=== PATIENT | female | born 1965 | race Caucasian/White ===

== ENCOUNTER 2019-08-30 13:32 | Emergency (ER) | payer SELFPAY ==
--- NOTE | 2019-08-30 14:19 | EDM.PDOC ---
ED HPI GENERAL MEDICAL PROBLEM - General Chief Complaint: Gastrointestinal Problem Stated Complaint: HEMORRHOID Time Seen by Provider: 08/30/19 14:05 Source of Information: Reports: Patient History Limitations: Reports: No Limitations - History of Present Illness INITIAL COMMENTS - FREE TEXT/NARRATIVE: Tia reports sxs of rectal pressure and bulging with bowel efforts over the past 8 days. On , she was aware of some BRB from the rectum, and attempted to treat with Prep H and Tucks without success. She has a colonoscopy in December 2018 reportedly normal for age. There is no abdominal pain, food intolerance, constipation or diarrhea. She has tried no other interventions. - Related Data Allergies Allergy/AdvReac Type Severity Reaction Status Date / Time No Known Allergies Allergy Verified 08/07/18 14:38 Home Meds: Home Meds Albuterol [Ventolin HFA] 1 - 2 puff IH Q4H PRN 08/07/18 [History] Budesonide/Formoterol Fumarate [Symbicort 160-4.5 Mcg Inhaler] 2 puff IH BID 02/17 [History] Cyclobenzaprine [Flexeril] 10 mg PO BEDTIME 08/07/18 [History] Gabapentin [Neurontin] 300 mg PO TID 08/07/18 [History] Montelukast [Singulair] 10 mg PO DAILY 08/07/18 [History] Omeprazole 20 mg PO DAILY 08/07/18 [History] PARoxetine [Paxil] 40 mg PO DAILY 08/07/18 [History] atorvaSTATin [Lipitor] 20 mg PO DAILY 08/07/18 [History] Past Medical History HEENT History: Reports: Impaired Vision Other HEENT History: GLASSES FOR READING ONLY. Cardiovascular History: Reports: High Cholesterol Respiratory History: Reports: Asthma Gastrointestinal History: Reports: None Genitourinary History: Reports: None HEALTH CENTER MANAGER History: Reports: Other HEALTH CENTER MANAGER History: I PARA I Musculoskeletal History: Reports: Back Pain, Chronic Neurological History: Reports: None Psychiatric History: Reports: Anxiety, Depression Endocrine/Metabolic History: Reports: Obesity/BMI 30+ Hematologic History: Reports: None Immunologic History: Reports: None Oncologic (Cancer) History: Reports: None Dermatologic History: Reports: None - Infectious Disease History Infectious Disease History: Reports: Chicken Pox - Past Surgical History Head Surgeries/Procedures: Reports: None HEENT Surgical History: Reports: Tonsillectomy Neurological Surgical History: Reports: Discectomy, Laminectomy Musculoskeletal Surgical History: Reports: Arthroscopic Knee Social & Family History - Family History Respiratory: GI: Reports: None - Caffeine Use Caffeine Use: Reports: Coffee, Soda ED ROS GENERAL - Review of Systems Review Of Systems: Comprehensive ROS is negative, except as noted in HPI. ED EXAM, GI/ABD - Physical Exam Exam: See Below Exam Limited By: No Limitations General Appearance: Alert, WD/WN, No Apparent Distress, Anxious Eyes: Bilateral: Normal Appearance, EOMI Ears: Normal External Exam Nose: Normal Inspection Throat/Mouth: Normal Inspection, Normal Oropharynx Head: Normocephalic Neck: Normal Inspection, Supple Respiratory/Chest: Lungs Clear Cardiovascular: Regular Rate, Rhythm GI/Abdominal Exam: Normal Bowel Sounds, Soft, Non-Tender, No Organomegaly, No Distention, No Mass (Female) Exam: Deferred Rectal (Female) Exam: Decreased Rectal Tone, Heme + Stool, Other (some engorgement of perirectal tissues, no hemorroids detected) Back Exam: Normal Inspection Extremities: Normal Inspection Neurological: Alert, Oriented, CN II-XII Intact, Normal Cognition, No Motor/ Sensory Deficits Psychiatric: Normal Affect, Anxious Skin Exam: Warm, Dry, Intact Lymphatic: No Adenopathy Course - Vital Signs Text/Narrative:: Tia remained asx during ED visit. A rectal prolapse is suspected. Departure - Departure Time of Disposition: 15:20 Disposition: Home, Self-Care 01 Condition: Fair Clinical Impression: Rectal mucosa prolapse - Discharge Information *PRESCRIPTION DRUG MONITORING PROGRAM REVIEWED*: Not Applicable *COPY OF PRESCRIPTION DRUG MONITORING REPORT IN PATIENT YESSY: Not Applicable Referrals: Meenu Garay, [employer]ARM GENER[employer] MANAGER [Primary Care Provider] - Forms: ED Department Discharge Sepsis Event Note - Focused Exam Date Exam was Performed: 08/30/19 Time Exam was Performed: 15:28 - Problem List & Annotations (1) Rectal mucosa prolapse SNOMED Code(s): 36084627 Code(s): K62.3 - RECTAL PROLAPSE Status: Acute Annotation/Comment:: Tia has a suspected rectal prolapse, and should follow up with Dr Hamilton. - Problem List Review Problem List Initiated/Reviewed/Updated: Yes - Assessment/Plan Plan: Follow up with Dr Hamilton.
== END 2019-08-30 15:55 | disposition home or self-care (01) ==
LOC: FB.ED 13:32
DX: K62.3 Rectal prolapse (principal); E66.9 Obesity, unspecified; Z68.30 Body mass index [BMI] 30.0-30.9, adult; F41.9 Anxiety disorder, unspecified; F32.9 Major depressive disorder, single episode, unspecified; E78.00 Pure hypercholesterolemia, unspecified; J45.909 Unspecified asthma, uncomplicated; Z79.899 Other long term (current) drug therapy
CPT/HCPCS: 99283